=== PATIENT | male | born 1960 | race Caucasian/White ===

== ENCOUNTER 2017-06-18 23:06 | Emergency (ER) | payer OTHER ==
[2017-06-19 00:24] VITALS: BP 131/65
== END 2017-06-19 02:20 | disposition home or self-care (01) ==
LOC: ED 23:06
DX: R51 Headache (principal); K21.9 Gastro-esophageal reflux disease without esophagitis
CPT/HCPCS: J1170; J1885; J8597; Q0162; Q0163